=== PATIENT | male | born 1990 | race Caucasian/White ===

== ENCOUNTER 2019-04-22 20:11 | Inpatient (IN) | payer SELFPAY ==
[~2019-04-22] VITALS: Ht 177.8 cm; Wt 91.0 kg
[2019-04-22 21:15] LABS: Urine Bacteria NONE SEEN /hpf (None Seen); Urine Blood Negative /uL (Negative); Urine Specific Gravity 1.025 (1.001-1.035); Urine WBC 2 /hpf (0 - 3)
[2019-04-22 21:49] LABS: Eosinophils # (auto) 0.1 uL
[2019-04-22 21:50] LABS: Basophils # (auto) 0 uL; Basophils % (auto) 0.3 % (0.0-2.0); Hematocrit 47.5 % (41.0-53.0); Hemoglobin 16.2 g/dL (13.5-17.5); Lymphocytes % (auto) 15.4 % (10.0-50.0); Mean Corpuscular Hemoglobin 27.8 pg (28.0-32.0); Mean Corpuscular Hgb Conc. 34.1 g/dL (32.0-36.0); Mean Corpuscular Volume 81.5 fL (80.0-100.0); Monocytes % (auto) 7.8 % (0.0-12.0); Neutrophils # (auto) 9.7 uL; Neutrophils % (auto) 75.5 % (37.0-80.0); Nucleated Red Blood Cells % 0.2 %; Platelet Count (auto) 268 10^3/uL (140-450); Red Blood Cells 5.82 10^6/uL (4.5-5.90); Red Cell Distribution Width 13.2 % (11.8-14.3); White Blood Cell 12.9 10^3/uL (4.4-10.8)
[2019-04-22 22:05] LABS: Chloride 103 mmol/L (98-107); Potassium 3.9 mmol/L (3.5-5.1); Sodium 137 mmol/L (136-145)
[2019-04-22 22:09] LABS: Albumin 4.1 g/dL (3.4-5.0); Anion Gap 10 (5-15); BUN/Creatinine Ratio 13.3; Blood Urea Nitrogen 13 mg/dL (7-18); Calcium 8.9 mg/dL (8.5-10.1); Carbon Dioxide 24 mmol/L (21-32); GFR African American 116 mL/min; GFR Non-African American 96 mL/min; Glucose 91 mg/dL (74-106); Lipase 147 U/L (73-393)
[2019-04-22 22:12] LABS: Alanine Aminotransferase 49 U/L (16-61); Alkaline Phosphatase 79 U/L (45-117); Aspartate Aminotransferase 29 U/L (15-37); Bilirubin, Total 1.9 mg/dL (0.2-1.0); Total Protein 7.6 g/dL (6.4-8.2)
[2019-04-23] MEDS ORDERED: KETOROLAC TROMETH 30 MG/ML 1ML VIAL IV ONE (09:00)
[2019-04-23] MEDS ORDERED: SODIUM CHLORIDE 0.9% 1,000 ML IV ONE ×2 (11:15)
[2019-04-23] MEDS ORDERED: PIPERACILLIN-TAZOB 3.375GM 100 ML IV ONE (11:15)
[2019-04-23] MEDS ORDERED: VANCOMYCIN 1GM/250ML 250 ML IV ONE (11:15)
[2019-04-23] MEDS ORDERED: HYDROcodone-ACET 5/325MG TAB PO PRN (12:15)
[2019-04-23] MEDS ORDERED: ONDANSETRON HCL 4 MG/2 ML VIAL IV PRN (12:15)
[2019-04-23] MEDS ORDERED: MORPHINE SULF INJ 2 MG/ML SYRINGE 1ML IV PRN ×2 (12:15)
[2019-04-23] MEDS ORDERED: NITROGLYCERIN 0.4 MG SL TAB SL PRN (12:15)
--- NOTE | 2019-04-23 14:45 | NUR ---
MS admit from ER SHANTEL MCMAHON admitted to tele/MS after SBAR received. Patient oriented to Latosha Maloney, primary RN, unit, room, bed, and unit policies regarding patient care and visiting hours. Patient weighed by bedscale and encouraged to call if they need something. All questions and concerns addressed, patient verbalized understanding. Note: pt is awake and alert,no complaints of abdominal pain, no signs of distress at this time, will continue to monitor.
[2019-04-23 15:00] VITALS: BP 142/79
[2019-04-23 15:18] VITALS: BP 142/79
[2019-04-23] MEDS: metroNIDAZOLE 500MG/100ML 100 ML IV SCH ×2 (15:57→22:12)
[2019-04-23] MEDS: SODIUM CHLORIDE 0.9% 1,000 ML IV SCH ×2 (15:57→23:02)
[2019-04-23 17:00] VITALS: BP 125/72
[2019-04-23] MEDS ORDERED: PNEUMOCOCCAL VACC POLYS 25 MCG/0.5 ML VIAL IM ONE (17:15)
[2019-04-23] MEDS ORDERED: INFLUENZA QUAD 2019-2020 0.5ml SYRG IM ONE (17:15)
[2019-04-23] MEDS: LEVOFLOXACIN 500MG 100 ML IV SCH (17:36)
--- NOTE | 2019-04-23 20:10 | NUR ---
open note assumed care of pt. upon entering room pt awake and alert. family at bedside. pt on room air no distress noted or expressed. pt updated on plan of care, no questions at this time. pt bed locked, low and 2x rails up. call light in reach, will round q1hr and prn. pt denies any pain at this time. encouraged pt to call this nurse as needed.
[2019-04-23 22:00] VITALS: BP 126/85
[2019-04-23] MEDS: FAMOTIDINE (10MG/ML) 2ML VL IV SCH (22:12)
[2019-04-23] MEDS: ACETAMINOPHEN 500 MG TAB PO PRN (22:12)
[2019-04-24 05:00] VITALS: BP 121/69
[2019-04-24] MEDS: metroNIDAZOLE 500MG/100ML 100 ML IV SCH ×3 (06:00→23:00)
--- NOTE | 2019-04-24 08:15 | NUR ---
Opening Shift Note Assumed care of patient, awake, alert and oriented. No S/S of distress/SOB or pain. Bed in low/locked position, bed rails up x2. Instructed on POC and to call for assist PRN with call light within reach. Will continue to monitor for changes Q1hr and PRN.
[2019-04-24 09:00] VITALS: BP 129/77
[2019-04-24] MEDS: SODIUM CHLORIDE 0.9% 1,000 ML IV SCH ×2 (09:13→14:15)
[2019-04-24] MEDS: FAMOTIDINE (10MG/ML) 2ML VL IV SCH ×2 (09:13→23:00)
[2019-04-24 13:00] VITALS: BP 120/70
[2019-04-24 17:00] VITALS: BP 135/73
[2019-04-24] MEDS: LEVOFLOXACIN 500MG 100 ML IV SCH (17:22)
[2019-04-24 22:00] VITALS: BP 134/84
[2019-04-24] MEDS: ACETAMINOPHEN 500 MG TAB PO PRN (23:00)
[2019-04-25] MEDS: SODIUM CHLORIDE 0.9% 1,000 ML IV SCH (04:33)
[2019-04-25 05:42] VITALS: BP 118/70
[2019-04-25 05:53] LABS: Basophils # (auto) 0.1 uL; Basophils % (auto) 0.8 % (0.0-2.0); Eosinophils # (auto) 0.2 uL; Eosinophils % (auto) 2.8 % (0.0-7.0); Hematocrit 45.3 % (41.0-53.0); Hemoglobin 15.9 g/dL (13.5-17.5); Lymphocytes # (auto) 1.6 uL; Lymphocytes % (auto) 21.6 % (10.0-50.0); Mean Corpuscular Hemoglobin 28.4 pg (28.0-32.0); Mean Corpuscular Hgb Conc. 35.2 g/dL (32.0-36.0); Mean Corpuscular Volume 80.8 fL (80.0-100.0); Monocytes # (auto) 0.8 uL; Monocytes % (auto) 10.6 % (0.0-12.0); Neutrophils # (auto) 4.6 uL; Neutrophils % (auto) 64.2 % (37.0-80.0); Nucleated Red Blood Cells % 0.1 %; Platelet Count (auto) 241 10^3/uL (140-450); White Blood Cell 7.2 10^3/uL (4.4-10.8)
[2019-04-25] MEDS: metroNIDAZOLE 500MG/100ML 100 ML IV SCH ×2 (06:03→13:28)
[2019-04-25 06:11] LABS: Potassium 4.4 mmol/L (3.5-5.1)
[2019-04-25 06:18] LABS: BUN/Creatinine Ratio 6.1; Calcium 9.2 mg/dL (8.5-10.1)
--- NOTE | 2019-04-25 08:00 | NUR ---
Opening Shift Note Assumed care of patient, awake, alert and oriented. No S/S of distress/SOB or pain. Instructed on POC and to call for assist PRN. Bed in lowest locked position, call light within reach, side rails up x2. Will continue to monitor for changes Q1hr and PRN.
[2019-04-25 09:00] VITALS: BP 123/76
[2019-04-25] MEDS: FAMOTIDINE (10MG/ML) 2ML VL IV SCH (09:23)
[2019-04-25 13:00] VITALS: BP 131/75
[2019-04-25] MEDS ORDERED: LEVO500T21 PO (15:02)
[2019-04-25] MEDS ORDERED: METR500T PO (15:02)
[2019-04-25 15:54] VITALS: BP 131/75
[2019-04-25 17:00] VITALS: BP 120/75
--- NOTE | 2019-04-25 17:31 | NUR ---
Discharge instructions given as ordered. Encourage to follow up with [facility] as instructed. All questions and concerns addressed. Patient verbalized understanding. All needed vaccines given. IV removed with catheter intact, pressure dressing applied. Patient taken to vehicle via wheelchair with all personal belongings, accompanied by staff and family member. No distress noted at time of departure.
== END 2019-04-25 17:30 | disposition home or self-care (01) | DRG 872 ==
LOC: ER 20:11 → OVERFLOW 20:12 → WEST WING 04-23 14:45
PROVIDERS: ADMIT Nurse Practitioner Acute Care; ATTEND Internal Medicine
DX: A41.9 Sepsis, unspecified organism (principal); K57.32 Diverticulitis of large intestine without perforation or abscess without bleeding; K40.20 Bilateral inguinal hernia, without obstruction or gangrene, not specified as recurrent; F12.10 Cannabis abuse, uncomplicated; Z23 Encounter for immunization
CPT/HCPCS: 36415; 74176; 80048; 80053; 81001; 83605; 83690; 85025; 87040; 96365; 96367; 96372; 96375; G0378; J1885; J1956; J2543; J3490